=== PATIENT | male | born 1965 | race Caucasian/White ===

== ENCOUNTER 2024-06-05 17:14 | Emergency (ER) | payer OTHER, SELFPAY ==
[2024-06-05 17:23] VITALS: BP 146/93
[2024-06-05 19:23] LABS: % Basophils 0.6 % (0-2); % Eosinophils 1.9 % (0-6); % Immature Granulocytes 0.4 % (0-0.5); % Lymphocytes 20.4 % (20.5-51.1); % Monocytes 12.9 % (1.7-9.3); % Neutrophils 63.8 % (42.2-75.2); Absolute Basophils 0.1 10^3/uL (0-0.2); Absolute Eosinophils 0.3 10^3/uL (0-0.7); Absolute Immature Granulocytes 0.1 10^3/uL (0-0.05); Absolute Lymphocytes 2.7 10^3/uL (1.2-3.4); Absolute Monocytes 1.7 10^3/uL (0.1-0.6); Absolute Neutrophils 8.3 10^3/uL (1.4-6.5); Hematocrit 41.6 % (39.0-52.0); Hemoglobin 15.4 g/dL (13.0-18.0); Mean Corpuscular Hgb 30.4 pg (27.0-31.0); Mean Corpuscular Volume 82.2 fL (80.0-94.0); Mean Platelet Volume 10.6 fL (7.4-10.4); Nucleated Red Blood Cells % 0 % (-); Platelet Count 200 10^3/uL (130-400); Red Blood Cell Count 5.06 10^6/uL (4.70-6.10); Red Cell Dist. Width 11.9 % (11.5-14.5)
[2024-06-05 19:32] LABS: Erythrocyte Sed Rate 16 mm/hour (0-20)
[2024-06-05 19:41] LABS: ALT (SGPT) 55 U/L (0-50); AST (SGOT) 36 U/L (17-59); Albumin 4.6 g/dl (3.5-5.0); Alkaline Phosphatase 113 U/L (38-126); Blood Urea Nitrogen 26 mg/dl (9-20); Calcium 9.5 mg/dl (8.4-10.2); Carbon Dioxide 30 mmol/L (22-30); Chloride 95 mmol/L (98-107); Glucose 180 mg/dl (70-99); Sodium 137 mmol/L (135-145); Total Bilirubin 0.9 mg/dl (0.2-1.3); Total Protein 7.3 g/dl (6.3-8.2); Uric Acid 6.9 mg/dl (3.5-8.5); eGFR > 60.00
[2024-06-05] MEDS: NORCO 5/325 1 TABLET PO (20:08)
--- NOTE | 2024-06-05 23:34 | ED.MUSCINJ ---
HPI-Injury
General
Chief Complaint: Musculo-Skeletal Complaint
Source: patient
Exam Limitations: none
Time Seen by Provider: 06/05/24 18:20
Nursing documentation reviewed up to this point in time: agreed with
History of Present Illness-Injury
Is this injury a work related problem?: No
Is pt an associate of [facility]/[place]?: No
Initial Injury comments:
Patient to ED wt complaint of right lateral elbow pain. Pain started last PM and has gottenprogressievely worse. Denies fever/chills, recent illness. No history of trauma. Brought to ED by spouse for eval.
Past History
Past History
ED Past Medical History: Other and Other
ED Past Surgical History: Other
Social History
Tobacco: Smoker
Alcohol: Occasional
Drug: None
Personal:
Living: with family
Employment: Employed
Family History
Family History: Other
Musculoskeletal Injury Exam
Musculoskeletal Injury Exam
Right Lateral Elbow:
Pain with Movement?: Moderate
Tender to palpation?: Moderate
Soft tissue swelling?: Mild
External deformity and angulation?: None
Joint effusion?: None
Contusion?: None
Hematoma-local bleeding into tissue?: None
Strain- Sprain- Tear (Connective tissue injury)?: None
Crepitus with movement?: No
Joint instability?: No
Malalignment/deformity?: No
Range of motion: Limited
Distal skin color and temperature: normal-warm & good color
Capillary Refill: normal
Normal distal neurovascular exam?: Yes
Peripheral Pulses: radial (right): 3+
Phy Exam
General Physical Exam
General Presentation: well appearing and no apparent distress
General age: appears stated age
General Skin: warm and dry
General Habitus: normal
Musculoskeletal Exam
Musculoskeletal Exam: neuro vasc intact
Skin Exam
Skin Exam: normal color, warm/dry and no rash
Psychiatric Exam
Psychiatric Exam: normal mood/affect
Injury Course
Orders/Labs/Results
Orders:
Orders
06/05/24 17:30
CR Elbow - Right Min 3 Views Urgent
Comment:
Reason For Exam: pain/swelling
06/05/24 19:14
CRP [C-Reactive Protein] Urgent
Comprehensive Metabolic Panel Urgent
Lyme Progressive Urgent
Uric Acid Urgent
06/05/24 19:15
Complete Blood Count/With Diff Urgent
Sed Rate [Erythrocyte Sed Rate] Urgent
06/05/24 19:53
Sling Right-Treatment ONCE
Hydrocodone 5/APAP 325 [[place] 5/325] 1 tablet PO NOW STA
Abnormal Lab Results
06/05/24 06/05/24
19:14 19:15
WBC 13.0 H 10^3/uL
(4.8-10.8)
MPV 10.6 H fL
(7.4-10.4)
Abs Immat Gran (auto) 0.1 H 10^3/uL
(0-0.05)
Absolute Neuts (auto) 8.3 H 10^3/uL
(1.4-6.5)
Absolute Monos (auto) 1.7 H 10^3/uL
(0.1-0.6)
Lymphocytes % 20.4 L %
(20.5-51.1)
Monocytes % 12.9 H %
(1.7-9.3)
Potassium 3.0 L mmol/L
(3.5-5.1)
Chloride 95 L mmol/L
(98-107)
BUN 26 H mg/dl
(9-20)
Glucose 180 H mg/dl
(70-99)
ALT 55 H U/L
(0-50)
C-Reactive Protein 31.20 H mg/L
(0.0-10.00)
06/05/24 19:15
06/05/24 19:14
*Radiology
Radiology exam reviewed: radiology read reviewed
*Pulse Oximetry
Patient hypoxic: no
*Critical Care Note
Total Time (30-74mins, 75-104mins- exclusive of procedures): Not Applicable
Update Note
Update Note:
Labs, xray reviewed. No redness/swelling to joint, afebrile. No evidence of infectious process. Suspect lateral epicondylitis. Recommend ice, ibuprofen, rest. He was ginve number for ortho follow up. given instructions on s/s to return to ED and
he is agreeaable to plan.
ED Attending Note
-
Portions of this chart may have been created with voice recognition software.� Occasional wrong word or��sound alike� substitutions may have occurred due to the inherent limitations of voice recognition software.
Discharge Plan
Departure
Patient Disposition: Home (Routine Discharge)
Date of Disposition: 06/05/24
Time of Disposition: 19:53
Patient with high blood pressure during this ER visit?: No
Condition: Good
Covid-19: Not Applicable
Discharge Problem:
Epicondylitis
Instructions: Lateral Epicondylitis (DC), Ibuprofen, Using Cold for Pain
Prescriptions:
New
hydrocodone-acetaminophen 5-325 mg tablet
1 tab PO Q4H PRN (Reason: pain) Qty: 9 0RF
No Action
hydrocodone-acetaminophen [Vicodin] 1 EACH tablet
1 ea PO Q4HPRN PRN (Reason: pain) Qty: 15 0RF
metoprolol succinate 50 MG tablet extended release 24 hr
50 mg PO DAILY
chlorthalidone 25 MG tablet
25 mg PO DAILY
amlodipine 10 MG tablet
10 mg PO DAILY
pantoprazole 40 MG tablet,delayed release (DR/EC)
40 mg PO DAILY
valsartan [Diovan] 320 MG tablet
320 mg PO DAILY
insulin aspart U-100 [Novolog FlexPen U-100 Insulin] 300 UNITS/3 ML insulin pen
0 units SC AC Qty: 1 0RF
insulin glargine [Lantus Solostar U-100 Insulin] 300 UNITS/3 ML insulin pen
10 units SC HS Qty: 1 0RF
(DME) pen needle, diabetic [Pen Needle] 1 EACH needle
1 ea MC ACHS Qty: 2 0RF
(DME) lancets 1 EACH misc
1 ea MC ACHS Qty: 1 0RF
atorvastatin 40 MG tablet
40 mg PO QPM Qty: 1 0RF
Rx Instructions:
hold until liver enzymes come down
Referrals:
Kareem Phan MD [Family Provider] -
Chuy Wells MD [Active] - Call in 1-3 days for appt
Interventions
Interventions:
*Risk Screen - Suicide Last Done: 06/05/24 17:23
*Neglect/Abuse Screening Last Done: 06/05/24 17:23
ED- Fall Risk Assessment Last Done: 06/05/24 19:27
*ED COVID-19 Vaccine History Last Done: 06/05/24 17:23
*Nursing Disposition Last Done: 06/05/24 20:32
ED-Musculoskeletal Assessment Last Done: 06/05/24 19:27
Discharge Date and Time
Discharge Date/Time: 06/05/24 20:33
Print Language: RWANDAN
[2024-06-07 15:14] LABS: Lyme Antibody Screen, EIA Negative (Negative)
== END 2024-06-05 20:33 | disposition home or self-care (01) ==
LOC: EMR 17:14
PROVIDERS: Nurse Practitioner; EMERGENCY PHYSICIAN Emergency Medicine; FAMILY PHYSICIAN Family Medicine
DX: M77.11 Lateral epicondylitis, right elbow (principal); F17.200 Nicotine dependence, unspecified, uncomplicated
CPT/HCPCS: 99283; 73080; 80053; 84550; 85025; 85652; 86140; 86618